=== PATIENT | female | born 2005 | race Caucasian/White ===

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

== ENCOUNTER 2025-01-24 19:54 | Emergency (ER) | payer SELFPAY ==
[2025-01-24 20:18] VITALS: BP 116/82; PULSE 86; RESP 17; TEMP 36.9; O2SAT 97; BMI 38.0
--- NOTE | 2025-01-24 21:02 | XRR_ITS ---
PROCEDURE INFORMATION: Exam: XR Lumbosacral Spine Exam date and time: 01/24/2025 9:33 PM Age: 19 years old Clinical indication: Low back pain; Additional info: Radiculopathy TECHNIQUE: Imaging protocol: Radiologic exam of the lumbosacral spine. Views: 2 or 3 views. COMPARISON: CR XR hip BI m 5V wo/w pel* [id number] 01/03/2020 4:28 PM FINDINGS: Bones/joints: Normal. No acute fracture. Straightening of the lumbar lordosis that might be related to muscle spasm. Soft tissues: Unremarkable. XR/XR lumbar spine 2-3V* [id number] IMPRESSION: Straightening of the lumbar lordosis that might be related to muscle spasm.
[2025-01-24 21:24] LABS: HCG Qualitative Urine. Negative (Negative)
--- NOTE | 2025-01-24 21:27 | W.ED.EXTPRO ---
HPI - Extremity Problem General: Chief complaint: Extremity Injury, Lower Stated complaint: R side hip pain Time Seen by Provider: 01/24/25 20:23 Source: patient Mode of arrival: ambulatory Limitations: no limitations History of Present Illness: 19yo female presents with family for evaluation of right hip pain. Patient reports that she has had bursitis since she was a small child and typically has to pop her hips. Patient states she was driving home tonight and felt as if her hip popped out of place. Reports she was able to get it back in but she now has burning pain moving down her leg. Patient states that she typically takes ibuprofen to help with pain, but it is not helping at this time. Patient denies fall, trauma, known injury, any other concerns at this time. Associated symptoms: Deny chest pain or fever(s) Related Data Home Medications ?Medication ?Instructions ?Recorded ?Confirmed Allergy Medication PO 05/01/21 05/23/23 Previous Rx's ?Medication ?Instructions ?Recorded Sole supports #1 ea 02/27/20 ondansetron 4 mg disintegrating 4 mg PO Q6H PRN nausea and 05/01/21 tablet vomiting #12 tabs cyclobenzaprine 5 mg tablet 5 mg PO TID PRN muscle spasm #20 01/24/25 tabs Allergies Allergy/AdvReac Type Severity Reaction Status Date / Time No Known Allergies Allergy Verified 05/23/23 14:38 Review of Systems Const: Denies: fever(s), chills or body aches Card: Denies: chest pain Resp: Denies: dyspnea Musc: Reports: extremity pain; Denies: neck pain PFS ED PFSH: Social History Smoking and tobacco/nicotine status: never used tobacco/nicotine Alcohol intake: never Substance/Drug Use: never Physical Exam Const: COMMON NORMALS: no acute distress, patient oriented x3, healthy appearing and alert GENERAL APPEARANCE: cooperative ORIENTATION/CONSCIOUSNESS: Yes awake OTHER: Patient is ambulatory to the fast-track recliner with no difficulty and unassisted. She is able to make position changes with no difficulty. She is interactive with exam appropriately. Family is at bedside HENMT: COMMON NORMALS: normocephalic and atraumatic HEAD & SCALP: normocephalic and atraumatic Chest: CHEST: Yes Symmetrical chest wall rise Resp: COMMON NORMALS: normal respiratory effort EFFORT & INSPECTION: Yes able to speak in complete sentences Back/Pelvis: THORACIC SPINE/UPPER BACK: No thoracic spinal tenderness LUMBAR SPINE/LOWER BACK: Yes lumbar spinal tenderness Lumbar spinal tenderness location: L3, L4 and L5 PELVIS: Yes sciatic notch tenderness on the right Extremity: NARRATIVE EXTREMITY EXAM: MAEW Neuro: COMMON NORMALS: patient oriented x3 SENSORIUM/ORIENTATION: Yes alert Course Vital Signs: Vital signs: Vital Signs Temperature 98.4 F 01/24/25 20:18 Pulse Rate 81 01/24/25 22:37 Respiratory Rate 18 01/24/25 22:37 Blood Pressure 121/65 01/24/25 22:37 Pulse Oximetry 98 01/24/25 22:37 Oxygen Delivery Me thod Room Air 01/24/25 20:18 MDM - Extremity (Nontraumatic) Medical Decision Making 19yo female presents with family for evaluation of right hip pain. Patient reports that she has had bursitis since she was a small child and typically has to pop her hips. Patient states she was driving home tonight and felt as if her hip popped out of place. Reports she was able to get it back in but she now has burning pain moving down her leg. Patient states that she typically takes ibuprofen to help with pain, but it is not helping at this time. Patient denies fall, trauma, known injury, any other concerns at this time. Patient is nontoxic in appearance. Vital signs are stable. On exam, patient was tender on the right sciatic notch. Proceeded with lumbar spine imaging which revealed straightening of the lumbar lordosis that may be related to muscle spasm. Patient did receive ketorolac and orphenadrine while in the emergency department. Prescription of low-dose cyclobenzaprine was sent to patient's pharmacy. Recommend she apply warm compress, work on range of motion exercises, then apply a cool compress. Advised activity modification for the next few days. Recommend she follow-up with primary care, call in 2 to 3 days with an update of symptoms and to discuss a recheck. Return precautions provided. Patient and family state understanding had no further questions or concerns at this time. Medical Records I reviewed the patient's medical records. Lab Data Radiology Impressions Lumbar Spine X-Ray 01/24/25 21:02 IMPRESSION: Straightening of the lumbar lordosis that might be related to muscle spasm. Laboratory Results HCG, Qual Negative (Negative) 01/24/25 21:10 All radiology interpretation(s) finalized by discharge Discharge Plan Discharge Patient Disposition: Home Clinical Impression: Low back pain radiating to right lower extremity Condition: Stable Prescriptions: New cyclobenzaprine 5 mg tablet 5 mg PO TID PRN (Reason: muscle spasm) Qty: 20 0RF No Action (DME) Sole supports See Rx Instructions .Route .MEDSUPPLY Qty: 1 0RF Rx Instructions: As directed Allergy Medication PO ondansetron 4 mg tablet,disintegrating 4 mg PO Q6H PRN (Reason: nausea and vomiting) Qty: 12 0RF Rx Instructions: 340b please Discharge Orders: Discharge ED (Routine); Ordered 01/25/25 Ordered By: Lebron Butler Referrals: Mara Wong DO [Primary Care Provider, [facility]] Discharge Diet: Usual diet Discharge Activity: Increase activity as tolerated Patient Instructions: Hip Bursitis (ED), Acute Low Back Pain (ED), Lower Back Exercises (ED), Pain Management Activity Restrictions/Additional Instructions: Continue with your home ibuprofen Short course low-dose cyclobenzaprine has been sent to the pharmacy to help with the muscular pain. Please not drive or operate heavy machinery while taking cyclobenzaprine See provided handouts with information about low back exercises to help work out the stiffness You may apply a warm compress prior to working on the range of motion exercises, then a cool compress after Try to avoid heavy lifting for the next 2 to 3 days, activity as tolerated. Follow-up with primary care, call in 2 to 3 days with an update of symptoms and to discuss a recheck Return to the emergency department if any rapid worsening symptoms, further injury, and as needed. Stand Alone Forms: Work/School Release Print Language: Chinese Coding Level of Care Code ED Fire Equipment Inspector Helper for Marisol Burkett
[2025-01-24] MEDS: ketorolac 30 mg/mL INJ IM (21:52)
[2025-01-24] MEDS: orphenadrine 30 mg/mL Inj 2 mL 60 MG IM (21:52)
[2025-01-24 22:37] VITALS: BP 121/65; PULSE 81; RESP 18; O2SAT 98
== END 2025-01-24 22:38 | disposition home or self-care (01) ==
PROVIDERS: Emergency Provider Nurse Practitioner; PCP Family Medicine
DX: M54.50 Low back pain, unspecified (principal); M79.604 Pain in right leg
CPT/HCPCS: 72100; 81025; 96372; 99284; J1885; J2360

== ENCOUNTER 2025-07-22 20:21 | Emergency (ER) | payer OTHER, SELFPAY ==
--- OUTSIDE RECORDS SUMMARY | 2025-07-22 20:30 | XMS_ITS | Clinical Summary ---
Author Organization [facility] on Address [address] [place] [address] Phone Care Team Providers Care Commissary Superintendent Name Role Phone Mara Wong Primary Care Provider Allergies Active Allergy Reactions Criticality Noted Date Comments Alpha-Gal (Latenprlp-Uepll-7,3-Galactose) Abdominal Pain High 09/17/2020 Nut Flavor Anaphylaxis High 03/23/2024 Medications acetaminophen (TYLENOL) 325 mg tablet Take 325 mg by mouth every 4 hours as needed. 0 Active hydrOXYzine HCL (ATARAX) 25 mg tabletIndicatio ns:Generalized anxiety disorder Take 1 Tablet (25 mg) by mouth 3 times daily as needed for Anxiety. 90 Tablet 2 3 Active Additional Information Patient not taking.Reason: Other (Comments) (pt did not like the drozziness it caused), Reported on 05/11/2025 EPINEPHrine (EPIPEN) 0.3 mg/0.3 mL Auto-InjectorIn dications:Aller gy to alpha-gal,Aller gy to peanuts Inject 0.3 mL (0.3 mg) by intramuscular injection 1 time daily as needed for Anaphylaxis. 2 Each 2 4 Active ibuprofen (MOTRIN) 200 mg tablet Take 400 mg by mouth every 6 hours as needed for Pain, Mild or Pain (for Migraine). Active SUMAtriptan (Imitrex) 25 mg tabletIndicatio ns:Migraine without aura and without status migrainosus, not intractable Take 1 Tablet (25 mg) by mouth every 2 hours as needed for Migraine. may repeat in 2 hours; max dose 200mg in 24 hours 30 Tablet Active ondansetron (ZOFRAN ODT) 4 mg Tablet, Rapid DissolveIndicat ions:Nausea Take 1 Tablet (4 mg) by mouth every 8 hours as needed for Nausea/Emesis. Dissolve tablet on top of tongue, then swallow with saliva. 30 Tablet Active Active Problems Problem Noted Date Diagnosed Date Allergy to alpha-gal 03/23/2024 Generalized anxiety disorder 12/12/2021 Moderate depressive disorder 12/12/2021 Encounters Date Type Department Care Team Description 06/06/2025 External Device Data STL ABSTRACTION Provider, Abstract 05/16/2025 External Device Data STL ABSTRACTION Provider, Abstract 05/11/2025 10:20 AM CDT Office Visit [facility] [address] [place] [address] DaltonNovember, COOLING TOWER OPERATOR Migraine without aura and without status migrainosus, not intractable (Primary Dx); Nausea 05/10/2025 Nurse Triage [facility] [address] [place] [address] Mara Wong DO from Last 3 Months Family History Medical History Relation Name Comments Heart Disease Mother Relation Name Status Comments Mother Alive Social History Tobacco Use Types Packs/Day Years Used Date Smoking Tobacco: Passive Smo ke Exposure - Never Smoker Smokeless Tobacco: Never Alcohol Use Standard Drinks/Week Comments Never 0 (1 standard drink = 0.6 oz pur e alcohol) Adolescent Education Answer Date Record ed Getting School Help Needed Not on file 03/06 Comments No Sex and Gender Information Value Date Recorded Sex Assigned at Female 11/22/2024 9:29 PM CDT Legal Sex Female 6:26 AM 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 Gender Identity Female 11/22/2024 9:29 PM CDT Sexual Orientation Straight 11/22/2024 9: 29 PM CDT Last Filed Vital Signs Vital Sign Reading Time Taken Comments Blood Pressure 126/78 05/11/2025 10:23 AM CDT Pulse 98 05/11/2025 10:23 AM CDT Temperature 36.6 C (97.8 F) 05/11/2025 10:23 AM CDT Respiratory Rate 18 05/11/2025 10:23 AM CDT Oxygen Saturation 96% 05/11/2025 10:23 AM CDT Inhaled Oxygen Concentration - - Weight 83.3 kg (183 lb 9.6 oz) 05/11/2025 10:23 AM CDT Height 149.9 cm (4' 11 ) 05/11/2025 10:23 AM CDT Body Mass Index 37.08 05/11/2025 10:23 AM CDT Plan of Treatment Health Maintenance Due Date Last Done Comments CHLAMYDIA SCREENING (ANNUAL) 11-24 YEARS 2015 HPV VACCINES (1 - 3-dose series) 2019 DTAP/TDAP/TD VACCINES (1 - Tdap) 2023 HEPATITIS B VACCINES (1 of 3 - 19+ 3-dose series) 02/16 CERVICAL CANCER SCREENING 2025 HPV/Cotest (21-29) 2025 PAP SMEAR 2025 INFLUENZA VACCINE (#1) 2025 Care Teams Commissary Superintendent Relationship Specialty Start Date End Date Mara Wong DO [address] [place] [id number] PCP - General 12/02/20
--- OUTSIDE RECORDS SUMMARY | 2025-07-22 20:30 | XMS_ITS | Clinical Summary ---
Author Organization [facility] on Address [address] [place] [address] Phone Care Team Providers Care Machine Joiner Cementer Name Role Phone Mara Wong Primary Care Provider Allergies Active Allergy Reactions Criticality Noted Date Comments Alpha-Gal (Yhtmfmxda-Ilzxe-4,3-Galactose) Abdominal Pain High 09/17/2020 Medications acetaminophen (TYLENOL) 325 mg tablet Take 325 mg by mouth every 4 hours as needed. Active EPINEPHrine (EpiPen) 0.3 mg/0.3 mL Auto-InjectorI ndications:All ergy to meat Inject 0.3 mL (0.3 mg) by intramuscular injection 1 time daily as needed for Anaphylaxis. If used, proceed immediately to the ER. 2 Each 2 1 Active oxyCODONE-acet aminophen (PERCOCET) 5-325 mg tabletIndicati ons:Postoperat rk pain Take 1-2 Tablets by mouth every 6 hours as needed for Pain, Moderate or Pain, Severe. Max Daily Amount: 8 Tablets 30 Tablet 1 Active Active Problems No known active problems Family History Medical History Relation Name Comments Heart Disease Mother Relation Name Status Comments Mother Alive Social History Tobacco Use Types Packs/Day Years Used Date Smoking Tobacco: Passive Smo ke Exposure - Never Smoker Smokeless Tobacco: Never Alcohol Use Standard Drinks/Week Comments Never 0 (1 standard drink = 0.6 oz pur e alcohol) Comments No Sex and Gender Information Value Date Recorded Sex Assigned at Not on file Legal Sex Female 7:30 PM CDT Gender Identity Not on file Sexual Orientation Not on file Last Filed Vital Signs Vital Sign Reading Time Taken Comments Blood Pressure 112/62 12/27/2020 11:30 AM CDT Pulse 90 12/27/2020 11:30 AM CDT Temperature 36.5 C (97.7 F) 12/27/2020 11:02 AM CDT Respiratory Rate 14 12/27/2020 10:37 AM CDT Oxygen Saturation 99% 12/27/2020 11:30 AM CDT Inhaled Oxygen Concentration - - Weight 73.5 kg (162 lb) 12/27/2020 8:07 AM CDT Height 152.4 cm (5') 12/27/2020 8:07 AM CDT Body Mass Index 31.64 12/27/2020 8:07 AM CDT Plan of Treatment Health Maintenance Due Date Last Done Comments CHLAMYDIA SCREENING (ANNUAL) 11-24 YEARS 2015 HPV VACCINES (1 - 3-dose series) 2019 DTAP/TDAP/TD VACCINES (1 - Tdap) 2023 HEPATITIS B VACCINES (1 of 3 - 19+ 3-dose series) 2023 CERVICAL CANCER SCREENING 2025 HPV/Cotest (21-29) 2025 PAP SMEAR 2025 INFLUENZA VACCINE (#1) 2025 Preventative Visit-Managed Medicaid 03/24/202503/23, 03/07/2022 Insurance [employer] MEDICAID [employer]ID [employer] MED[employer]ID Care Teams Machine Joiner Cementer Relationship Specialty Start Date End Date Mara Wong DO [address] [place] [address] PCP - General Family Practice 01/04/20
--- OUTSIDE RECORDS SUMMARY | 2025-07-22 20:30 | XMS_ITS | Encounter Summary ---
Author Organization [facility] Address [address] [place] [address] Care Team Providers Care Weight Reducing Technician Name Role Phone Mara Wong Primary Care Provider [phone] Encounter Details Date Type Department Care Team (Late st Contact Info) Description 10/09/2020 Ancillary Orders [facility] Orthopedics - Orthopedic [facility] [address] [place] [address] Gil Cody MD [address] [place] [address] Bilateral hip pain Social History Tobacco Use Types Packs/Day Years [...] on file Sexual Orientation Not on file COVID-19 Exposure Response Date Recorded In the last month, have you been in contact with someone who was confirmed or suspected to have Coronavirus / COVID-19? 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 Well preserved joint space. Normal films. us Gil Cody MD DIAGNOSTIC IMAGING ORDERAB LES Final Result documented in this encounter Visit Diagnoses Diagnosis Bilateral hip pain Pain in joint, pelvic region and thigh Bilateral hip pain Pain in joint, pelvic region and thigh documented in this encounter Care Teams Weight Reducing Technician Relationship Specialty Start Date End Date Mara Wong DO [address] [place] [address] PCP - General Family Practice 01/04/20 documented as of this encounter
[2025-07-22 20:35] VITALS: BP 144/82; PULSE 86; RESP 20; TEMP 36.9; O2SAT 95; BMI 34.3
[2025-07-22 20:52] VITALS: BP 109/85; PULSE 89; RESP 16; O2SAT 95
--- NOTE | 2025-07-22 21:20 | XRR_ITS ---
PROCEDURE INFORMATION: Exam: XR Left Shoulder Exam date and time: 07/22/2025 9:29 PM Age: 20 years old Clinical indication: Injury or trauma; Other: Lifting injury; Work related; Sprain or strain; Shoulder; Left; Additional info: Shoulder injury TECHNIQUE: Imaging protocol: Radiologic exam of the left shoulder. Views: 2 or more views. COMPARISON: CR (CHEST, ) 07/22/2025 9:29 PM FINDINGS: Bones/joints: Normal. Soft tissues: Unremarkable. XR/XR shoulder LT min 2V* [id number] IMPRESSION: No acute findings.
--- NOTE | 2025-07-22 21:20 | XRR_ITS ---
PROCEDURE INFORMATION: Exam: XR Chest Exam date and time: 07/22/2025 9:29 PM Age: 20 years old Clinical indication: Injury or trauma; Other: Lifting injury; Work related; Sprain or strain; Additional info: Clavicle/scapula injury / pain TECHNIQUE: Imaging protocol: Radiologic exam of the chest. Views: 1 view. COMPARISON: CR XR shoulder LT min 2V* [id number] 07/22/2025 9:29 PM FINDINGS: Lungs: Pulmonary hypoinflation with associated bronchovascular crowding. No consolidation. Pleural spaces: Unremarkable. No pleural effusion. No pneumothorax. Heart/Mediastinum: Unremarkable. No cardiomegaly. Bones/joints: Unremarkable. XR/XR chest 1V portable [id number] IMPRESSION: No acute findings.
--- NOTE | 2025-07-22 21:21 | W.ED.EXTPRO ---
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 She had immediate pain. She cannot abduct her left shoulder. She has this held in adduction. This occurred just prior to arrival. Associated symptoms: Deny chest pain or fever(s) Related Data Home Medications ?Medication ?Instructions ?Recorded ?Confirmed Allergy Medication PO 05/01/21 05/23/23 Previous Rx's ?Medication ?Instructions ?Recorded Sole supports #1 ea 02/27/20 ondansetron 4 mg disintegrating 4 mg PO Q6H PRN nausea and 05/01/21 tablet vomiting #12 tabs cyclobenzaprine 5 mg tablet 5 mg PO TID PRN muscle spasm #20 01/24/25 tabs celecoxib 200 mg capsule 200 mg PO DAILY #30 caps 07/22/25 methocarbamol 750 mg tablet 750 mg PO Q8H PRN muscle spasm #30 07/22/25 tabs methylprednisolone 4 mg tablets in See Rx Instructions PO .COMPLEX 07/22/25 a dose pack (Medrol (Nathan)) #21 ea Allergies Allergy/AdvReac Type Severity Reaction Status Date / Time No Known Allergies Allergy Verified 07/22/25 20:41 Review of Systems Const: Denies: fever(s), chills or body aches Card: Denies: chest pain or palpitations Resp: Denies: dyspnea or non-productive cough GI: Denies: abdominal pain, nausea or vomiting Musc: Reports: extremity pain; Denies: neck pain Neuro: Denies: headache(s), numbness in extremities or sensory changes Psych: Denies: anxiety or depression PFSH ED PFSH: Social History Smoking and tobacco/nicotine status: never used tobacco/nicotine Alcohol intake: never Substance/Drug Use: never Physical Exam Const: COMMON NORMALS: no acute distress, average body habitus and patient oriented x3 HENMT: COMMON NORMALS: normocephalic and atraumatic HEAD & SCALP: normocephalic and atraumatic Lymph: LYMPHATIC: no lymphadenopathy noted Chest: COMMONS NORMALS: normal inspection of the chest and normal palpation of entire chest wall Resp: COMMON NORMALS: normal respiratory effort, No retractions and No use of accessory muscles Cardio: COMMON NORMALS: regular rate and regular rhythm RATE: regular rate RHYTHM: regular rhythm GI: COMMON NORMALS: Normal to inspection, nondistended, normoactive bowel sounds present, Soft to palpation, non-tender and No hepatosplenomegaly present PALPATION: Yes Soft to palpation and Yes No hepatosplenomegaly present Extremity: LEFT UPPER EXTREMITY: Yes shoulder joint Left shoulder joint: Yes special tests Left shoulder special tests: Empty can test: Negative (Lateral and anterior) Neuro: COMMON NORMALS: patient oriented x3 Course Vital Signs: Vital signs: Vital Signs Temperature 98.4 F 07/22/25 20:35 Pulse Rate 89 07/22/25 20:52 Respiratory Rate 16 07/22/25 20:52 Blood Pressure 109/85 07/22/25 20:52 Pulse Oximetry 95 07/22/25 20:52 Oxygen Delivery Me thod Room Air 07/22/25 20:35 MDM - Extremity (Nontraumatic) Medical Decision Making Patient is a 20-year-old female that presents to the emergency room with left shoulder contusion by senior care resident. She is a SOFA BACK UPHOLSTERER. On exam, her empty can test is negative. She has improvement after Toradol, and Norflex IM. This is most likely associated with a local contusion. X-ray is negative for acute fracture. Patient was advised to follow-up with orthopedist if there is further issues, muscle relaxer, NSAIDs, Medrol Dosepak ordered. Medical Records I reviewed the patient's medical records. Lab Data Radiology Impressions Chest X-Ray 07/22/25 21:20 IMPRESSION: No acute findings. Shoulder X-Ray 07/22/25 21:20 IMPRESSION: No acute findings. All radiology interpretation(s) finalized by discharge Discharge Plan Discharge Patient Disposition: Home Clinical Impression: Acute pain of left shoulder Condition: Stable Prescriptions: New celecoxib 200 mg capsule 200 mg PO DAILY Qty: 30 0RF methocarbamol 750 mg tablet 750 mg PO Q8H PRN (Reason: muscle spasm) Qty: 30 0RF methylprednisolone [Medrol (Nathan)] 4 mg tablets,dose pack See Rx Instructions .ROUTE .COMPLEX Qty: 21 0RF Rx Instructions: for 6 days No Action (DME) Sole supports See Rx Instructions .Route .MEDSUPPLY Qty: 1 0RF Rx Instructions: As directed Allergy Medication PO ondansetron 4 mg tablet,disintegrating 4 mg PO Q6H PRN (Reason: nausea and vomiting) Qty: 12 0RF Rx Instructions: 340b please cyclobenzaprine 5 mg tablet 5 mg PO TID PRN (Reason: muscle spasm) Qty: 20 0RF Discharge Orders: Discharge ED (Routine); Ordered 07/22/25 Ordered By: Fina Pride Referrals: Tonya Breen MD [Physician, Orthopedics] Mara Wong DO [Primary Care Provider, Family Practice] Discharge Diet: Usual diet Discharge Activity: Resume usual activity Patient Instructions: Shoulder Pain (ED), Patient Portal & Joel Instructions Activity Restrictions/Additional Instructions: - Medication at the pharmacy: Celecoxib, methocarbamol, Medrol Dosepak. Celecoxib is a powerful anti-inflammatory. Do not take other NSAIDs including ibuprofen or naproxen. Methocarbamol/Robaxin is a muscle relaxer. Do not take other muscle relaxers with this. Medrol Dosepak is for 6 days, use as directed, that helps with the inflammatory changes in his steroid help. -Off work until Thursday. Follow-up with occupational rehab for additional concerns. - Ice your arm. Work on range of motion. - Dr. Breen will send a referral if your work does not have further set up. Thank you for choosing [facility] for your healthcare needs today. You have been screened and evaluated and felt safe for discharge. Health conditions do change or evolve sometimes and as such it is important that you follow up with your Primary Doctor to be re checked, 3-5 days is a general good time frame for follow up. You are always welcome to return to the ED for re assessment if your symptoms are worsening or you have new concerns Stand Alone Forms: Work/School Release Print Language: South African Coding Level of Care Code ED Furniture Removalist for Marisol Burkett
[2025-07-22] MEDS: orphenadrine 30 mg/mL Inj 2 mL 60 MG IM (22:08)
--- NOTE | 2025-07-24 16:28 | DCPLANNER ---
messaged ortho for er f/u
== END 2025-07-22 22:26 | disposition home or self-care (01) ==
PROVIDERS: Emergency Provider Physician Assistant; PCP Family Medicine
DX: M25.512 Pain in left shoulder (principal)
CPT/HCPCS: 71045; 73030; 96372; 99284; J1885; J2360